=== PATIENT | male | born 1950 | race Caucasian/White ===

== ENCOUNTER → 2021-07-01 | Outpatient (CLI) | payer MEDICARE, BC ==
[2021-07-01 12:29] LABS: BASO # 0.07 K/mm3 (0.02-0.10); EOS % 1.9 % (0.0-4.0); HEMATOCRIT 47.5 % (42.0-52.0); HEMOGLOBIN 16.1 g/dL (13.5-18.0); LYMPH# 2.92 K/mm3 (1.50-4.00); MEAN CELL VOLUME 91 fl (78-100); MEAN CORPUSCULAR HEMOGLOBIN 31 pg (27-31); MEAN CORPUSCULAR HGB CONC 34 g/dL (33-37); MEAN PLATELET VOLUME 9.9 fl (7.4-10.4); MONO # 0.65 K/mm3 (0.20-0.80); NEU # 6.38 K/mm3 (1.40-6.50); PLATELET COUNT 248 K/mm3 (130-400); RED BLOOD COUNT 5.25 M/mm3 (4.20-5.60); RED CELL DISTRIBUTION WIDTH 13.8 % (11.5-14.5); WHITE BLOOD COUNT 10.4 K/mm3 (4.8-10.8)
[2021-07-01 12:40] LABS: POTASSIUM 4.1 mmol/L (3.5-5.1); SODIUM 137 mmol/L (136-145)
[2021-07-01 12:41] LABS: CALCIUM 9.3 mg/dL (8.3-10.5); GLUCOSE 162 mg/dL (75-110)
[2021-07-01 12:43] LABS: CARBON DIOXIDE 25 mmol/L (23-31)
[2021-07-01 13:04] LABS: D-DIMER 0.36 mg/L FEU (0.15-0.50)
[2021-07-01 13:09] LABS: TROPONIN-I < 0.030 ng/mL (<0.030)
== END ==
LOC: LAB 12:06
PROVIDERS: Nurse Practitioner Family
DX: R42 Dizziness and giddiness (principal); R03.0 Elevated blood-pressure reading, without diagnosis of hypertension; R06.02 Shortness of breath

== ENCOUNTER 2021-12-31 00:01 | Emergency (ER) | payer MEDICARE, BC ==
[~2021-12-31] VITALS: Ht 172.7 cm; Wt 113.6 kg
[2021-12-31] MEDS ORDERED: ATROVENT I0.2 MG/1 M IH (00:18)
[2021-12-31] MEDS ORDERED: LIPITOR 10M10 MG/TAB PO (00:19)
[2021-12-31 01:03] LABS: BASO # 0.06 K/mm3 (0.02-0.10); EOS # 0.23 K/mm3 (0.04-0.40); EOS % 2.8 % (0.0-4.0); HEMATOCRIT 46.1 % (42.0-52.0); HEMOGLOBIN 15.7 g/dL (13.5-18.0); LYMPH# 2.26 K/mm3 (1.50-4.00); MEAN CELL VOLUME 91 fl (78-100); MEAN CORPUSCULAR HEMOGLOBIN 31 pg (27-31); MEAN CORPUSCULAR HGB CONC 34 g/dL (33-37); MEAN PLATELET VOLUME 10.4 fl (7.4-10.4); MONO # 0.64 K/mm3 (0.20-0.80); NEU # 4.88 K/mm3 (1.40-6.50); PLATELET COUNT 196 K/mm3 (130-400); RED BLOOD COUNT 5.06 M/mm3 (4.20-5.60); RED CELL DISTRIBUTION WIDTH 13.4 % (11.5-14.5); WHITE BLOOD COUNT 8.1 K/mm3 (4.8-10.8)
[2021-12-31 01:23] LABS: ALBUMIN 4.5 g/dL (3.4-4.8)
[2021-12-31 01:24] LABS: CALCIUM 9.1 mg/dL (8.3-10.5)
[2021-12-31 01:27] LABS: TOTAL BILIRUBIN 0.6 mg/dL (0.2-1.2)
[2021-12-31 01:47] VITALS: BP 158/87
== END 2021-12-31 01:50 | disposition home or self-care (01) ==
LOC: ED 00:01
PROVIDERS: Physician Assistant
DX: R07.9 Chest pain, unspecified (principal); F17.200 Nicotine dependence, unspecified, uncomplicated
CPT/HCPCS: J1885